=== PATIENT | female | born 1945 | race Caucasian/White ===

== ENCOUNTER 2024-02-18 08:49 | Inpatient (IN) | payer MEDICARE, OTHER ==
[2024-02-18] MEDS ORDERED: NOREPINEPHRINE 8 MG/250 ML-D5W 250 ML ONE ×2 (08:52→09:31)
[2024-02-18] MEDS ORDERED: KETAMINE 100 MG/ML (5ML VIAL) ONE (08:53)
[2024-02-18] MEDS ORDERED: Heparin 25,000 UNITS/D5W 500 ml bag ONE (09:03)
[2024-02-18] MEDS ORDERED: Heparin 10,000 UNITS/ 10 ML VIAL ONE (09:03)
[2024-02-18] MEDS ORDERED: Rocuronium Bromide 10 MG/ML (10ML VIAL) ONE ×2 (09:03→11:58)
[2024-02-18] MEDS ORDERED: fentaNYL 50 mcg/mL 1 mL Vial ONE (09:05)
[2024-02-18] MEDS ORDERED: Aspirin 300 MG Suppository ONE ×2 (09:06→09:25)
[2024-02-18 09:13] LABS: #Basophils 0.03 10x3/uL (0.0-0.2); #Eosinophils Less than 0.03 10x3/uL (0.0-0.7); %Basophils 0.2 % (0.0-1.0); %Lymphocytes 7.7 % (21.0-51.0); %Monocytes 5.5 % (0.0-10.0); %Neutrophils 85.3 % (42.0-75.0); Hematocrit 35.7 % (36.0-47.0); Hemoglobin 11.9 g/dL (12.0-16.0); Mean Corpuscular HGB CONC 33.3 g/dL (32.0-36.0); Mean Corpuscular Hemoglobin 32.3 pg (27.0-31.0); Mean Platelet Volume 10.1 fL (7.4-10.4); Platelet Count 340 10x3/uL (130-400); RBC Distribution Width 13.4 % (11.5-14.5); Red Blood Cell (RBC) Count 3.68 mill/uL (4.20-5.40)
[2024-02-18 09:34] LABS: INR-International Normal Ratio 1.3; PTT 29.8 sec (22.9-36.1); Prothrombin Time 16.3 sec (12.0-14.7)
[2024-02-18] MEDS ORDERED: Verapamil 5 MG/2 ML VIAL ONE (09:46)
[2024-02-18] MEDS ORDERED: Adenosine 6 mg (2 mL) VIAL ONE (09:46)
[2024-02-18] MEDS ORDERED: Atropine Sulfate 1 mg/10 ml Syringe ONE (09:52)
[2024-02-18] MEDS ORDERED: EPINEPHrine 1 MG/10 ML Abboject SYRINGE ONE (09:52)
[2024-02-18 09:59] LABS: Phosphorus 4.9 mg/dL (2.3-4.7)
[2024-02-18 10:13] LABS: ALT (SGPT) 89 U/L (8-55); AST (SGOT) 114 U/L (5-34); Albumin 2.8 g/dL (3.4-4.8); Alkaline Phosphatase 60 U/L (40-110); Anion Gap 21 mmol/L (10-20); BUN (Urea Nitrogen) 15 mg/dL (9.8-20.1); Bilirubin, Total 0.6 mg/dL (0.2-1.2); Calc. Creatinine Clearance 0 mL/min (70-130); Calcium 8.3 mg/dL (7.8-10.44); Carbon Dioxide 14 mmol/L (23-31); Chloride 97 mmol/L (98-107); Estimated GFR 60; Globulin 3.1 g/dL (2.4-3.5); Glucose 551 mg/dL (83-110); Magnesium 1.9 mg/dL (1.6-2.6); Potassium 5.1 mmol/L (3.5-5.1); Protein, Total 5.9 g/dL (5.8-8.1); Sodium 127 mmol/L (136-145)
[2024-02-18] MEDS ORDERED: Iopamidol 370 76% 100 ML VIAL ONE (11:11)
[2024-02-18] MEDS: Propofol 1,000 MG/100 ML VIAL IV ONE (12:45)
[2024-02-18 12:51] LABS: Actual Bicarbonate (HCO3a) 16.4 mEq/L (22-28); Base Excess (BEa) -9.2 mEq/L (-2.0 to +3.0); CO2 Tension 34.5 mmHg (35.0-45.0); Calcium, Ionized (arterial) 1.17 mmol/L (1.12-1.30); Carboxyhemoglobin (COHb) 0.5 gm% (0.0-3.0); Hematocrit-ABG 38 % (36.0-47.0); Hemoglobin (Hb) 12.8 g/dL (12.0-16.0); O2 Tension (PaO2), arterial 60.8 mmHg (> 70.0); Potassium - ABG Lab 5.34 mmol/L (3.70-5.30); pH, Arterial 7.294 (7.35-7.45)
[2024-02-18 12:52] LABS: ALV-art Gradient 609.075 mmHg (0-20); Puncture Site Right Radial artery
[2024-02-18] MEDS: Fentanyl CADD 100 ML ONE (12:55)
[2024-02-18] MEDS: Sodium Bicarbonate 25 MEQ in Dextrose 5% in Water 1,000 ML FS SCH (13:15)
[2024-02-18] MEDS: Sodium Chloride 0.9% 1,000 ML IV SCH (13:20)
[2024-02-18] MEDS ORDERED: Lorazepam 2 MG/ML VIAL SLOW IVP PRN (13:30)
[2024-02-18] MEDS ORDERED: Propofol 1,000 MG/100 ML VIAL IV PRN (13:30)
[2024-02-18] MEDS ORDERED: Morphine 2 MG/ML VIAL SLOW IVP PRN (13:30)
[2024-02-18] MEDS ORDERED: Fentanyl BOLUS 250 ML IVPB PRN (13:30)
[2024-02-18] MEDS ORDERED: Fentanyl CADD 100 ML IV SCH (13:30)
[2024-02-18] MEDS ORDERED: Propofol BOLUS 1,000 MG/100 ML VIAL IV PRN (13:30)
[2024-02-18] MEDS ORDERED: Glucagon 1 MG/ML KIT IM PRN (13:46)
[2024-02-18] MEDS ORDERED: Dextrose 50% Abboject 50 ML SYRINGE SLOW IVP PRN (13:46)
[2024-02-18] MEDS ORDERED: Dextrose 5% in Water 1,000 ML IV PRN (13:46)
[2024-02-18 14:10] LABS: Actual Bicarbonate (HCO3a) 18.6 mEq/L (22-28); Base Excess (BEa) -5.4 mEq/L (-2.0 to +3.0); CO2 Tension 31.4 mmHg (35.0-45.0); Calcium, Ionized (arterial) 1.07 mmol/L (1.12-1.30); Carboxyhemoglobin (COHb) 0.4 gm% (0.0-3.0); Hematocrit-ABG 34 % (36.0-47.0); Hemoglobin (Hb) 11.6 g/dL (12.0-16.0); Potassium - ABG Lab 4.83 mmol/L (3.70-5.30); pH, Arterial 7.391 (7.35-7.45)
[2024-02-18 14:12] LABS: O2 Tension (PaO2), arterial 35.3 mmHg (> 70.0)
[2024-02-18] MEDS: NOREPINEPHRINE 8 MG/250 ML-D5W 250 ML IVPB SCH (14:30)
[2024-02-18] MEDS: Insulin Lispro 100 UNIT/ML 10 ML VIAL SC PRN (14:37)
[2024-02-18 14:58] VITALS: BMI 28.4
[2024-02-18] MEDS ORDERED: Sodium Chloride 0.9% 500 ML IV SCH (15:00)
[2024-02-18] MEDS ORDERED: Heparin 25,000 units/D5W 500 ML IV SCH (15:00)
[2024-02-18] MEDS ORDERED: Heparin 10,000 UNITS/1 ML VIAL 50,000 UNITS in Dextrose 5% in Water 1,000 ML IVPB SCH (15:00)
[2024-02-18 15:33] LABS: PTT 120.2 sec (22.9-36.1)
[2024-02-18] MEDS: NOREPINEPHRINE 8 MG/250 ML-D5W 250 ML ONE (16:30)
[2024-02-18] MEDS: Heparin 10,000 UNITS/ 10 ML VIAL SLOW IVP SCH (16:36)
[2024-02-18 16:39] LABS: ALT (SGPT) 139 U/L (8-55); AST (SGOT) 283 U/L (5-34); Albumin 2.6 g/dL (3.4-4.8); Alkaline Phosphatase 55 U/L (40-110); Anion Gap 17 mmol/L (10-20); BUN (Urea Nitrogen) 17 mg/dL (9.8-20.1); Bilirubin, Total 0.5 mg/dL (0.2-1.2); Calc. Creatinine Clearance 64 mL/min (70-130); Calcium 7.9 mg/dL (7.8-10.44); Carbon Dioxide 16 mmol/L (23-31); Chloride 99 mmol/L (98-107); Estimated GFR 65; Globulin 2.7 g/dL (2.4-3.5); Glucose 460 mg/dL (83-110); Protein, Total 5.3 g/dL (5.8-8.1); Sodium 127 mmol/L (136-145)
[2024-02-18] MEDS: TICAGRELOR 90 MG TABLET PO SCH ×2 (16:49→16:53)
[2024-02-18 19:46] LABS: Troponin I 13.893 ng/mL (< 0.028)
[2024-02-18 21:31] LABS: Glucose 332 mg/dL (83-110)
[2024-02-18 23:19] LABS: #Basophils 0.03 10x3/uL (0.0-0.2); #Eosinophils Less than 0.03 10x3/uL (0.0-0.7); %Basophils 0.2 % (0.0-1.0); %Eosinophils 0.1 % (0.0-10.0); %Monocytes 9.2 % (0.0-10.0); %Neutrophils 70.4 % (42.0-75.0); Hematocrit 29.4 % (36.0-47.0); Mean Corpuscular Hemoglobin 31.6 pg (27.0-31.0); Mean Platelet Volume 10.2 fL (7.4-10.4); Platelet Count 324 10x3/uL (130-400); RBC Distribution Width 13.5 % (11.5-14.5); Red Blood Cell (RBC) Count 3.16 mill/uL (4.20-5.40)
[2024-02-19 01:32] LABS: Glucose 218 mg/dL (83-110)
[2024-02-19 03:05] LABS: Actual Bicarbonate (HCO3v) 19.3 mEq/L (22-28); Analyzer IN Cardio ER; Chloride (VBG) 101 mmol/L (98-106); Hematocrit-VBG 28 % (36.0-47.0); Hemoglobin (Hb) 9.4 g/dL (11.7-16.1); Potassium (VBG) 3.69 mmol/L (3.70-5.30); Sodium 128 mmol/L (133-146)
[2024-02-19 03:13] LABS: #Basophils 0.04 10x3/uL (0.0-0.2); %Basophils 0.2 % (0.0-1.0); %Eosinophils 0.2 % (0.0-10.0); %Monocytes 10.1 % (0.0-10.0); %Neutrophils 66.2 % (42.0-75.0); Hematocrit 25.4 % (36.0-47.0); Hemoglobin 8.5 g/dL (12.0-16.0); Mean Corpuscular HGB CONC 33.5 g/dL (32.0-36.0); Mean Corpuscular Hemoglobin 32.1 pg (27.0-31.0); Mean Corpuscular Volume 95.8 fL (78.0-98.0); Mean Platelet Volume 10.1 fL (7.4-10.4); Platelet Count 288 10x3/uL (130-400); RBC Distribution Width 13.6 % (11.5-14.5); Red Blood Cell (RBC) Count 2.65 mill/uL (4.20-5.40)
[2024-02-19 03:44] LABS: INR-International Normal Ratio 1.4; PTT 74.4 sec (22.9-36.1)
[2024-02-19 03:56] LABS: Lactic Acid 2.43 mmol/L (0.5-2.2)
[2024-02-19 04:01] LABS: ALT (SGPT) 121 U/L (8-55); AST (SGOT) 250 U/L (5-34); Albumin 2.2 g/dL (3.4-4.8); Alkaline Phosphatase 42 U/L (40-110); Anion Gap 13 mmol/L (10-20); BUN (Urea Nitrogen) 17 mg/dL (9.8-20.1); Bilirubin, Total 0.4 mg/dL (0.2-1.2); Calc. Creatinine Clearance 76 mL/min (70-130); Calcium 7.4 mg/dL (7.8-10.44); Carbon Dioxide 18 mmol/L (23-31); Chloride 102 mmol/L (98-107); Estimated GFR 79; Globulin 2.1 g/dL (2.4-3.5); Glucose 213 mg/dL (83-110); Potassium 3.7 mmol/L (3.5-5.1); Protein, Total 4.3 g/dL (5.8-8.1); Sodium 129 mmol/L (136-145)
[2024-02-19] MEDS: Albumin 25% 25 GM (100 mL) BOT IVPB SCH (04:44)
[2024-02-19 06:17] LABS: Glucose 249 mg/dL (83-110)
[2024-02-19] MEDS ORDERED: Morphine 10 MG/ML VIAL SLOW IVP PRN (09:28)
[2024-02-19] MEDS: Morphine 4 MG/ML VIAL SLOW IVP PRN (10:39)
[2024-02-19 23:09] VITALS: TEMP 98.1
[2024-02-20 07:29] VITALS: BP 90/62
[2024-02-20] MEDS: Scopolamine 1 mg/72 hour Patch TD SCH (08:50)
== END 2024-02-20 17:33 | disposition hospice, inpatient (51) | DRG 215 ==
LOC: ERS 08:49 → CCL 09:34 → CCU 09:36 → T4-B 02-19 22:41
PROVIDERS: ADMIT Internal Medicine Cardiovascular Disease; ATTEND Internal Medicine Cardiovascular Disease
PROC: 027034Z Dilation of Coronary Artery, One Artery with Drug-eluting Intraluminal Device, Percutaneous Approach (ICD-10-PCS; principal; 2024-02-18)
PROC: 02HA3RZ Insertion of Short-term External Heart Assist System into Heart, Percutaneous Approach (ICD-10-PCS; 2024-02-18)
PROC: 02F03ZZ Fragmentation in Coronary Artery, One Artery, Percutaneous Approach (ICD-10-PCS; 2024-02-18)
PROC: 5A0221D Assistance with Cardiac Output using Impeller Pump, Continuous (ICD-10-PCS; 2024-02-18)
PROC: 4A023N7 Measurement of Cardiac Sampling and Pressure, Left Heart, Percutaneous Approach (ICD-10-PCS; 2024-02-18)
PROC: B2111ZZ Fluoroscopy of Multiple Coronary Arteries using Low Osmolar Contrast (ICD-10-PCS; 2024-02-18)
PROC: 5A2204Z Restoration of Cardiac Rhythm, Single (ICD-10-PCS; 2024-02-18)
PROC: 0BH17EZ Insertion of Endotracheal Airway into Trachea, Via Natural or Artificial Opening (ICD-10-PCS; 2024-02-18)
PROC: 5A1945Z Respiratory Ventilation, 24-96 Consecutive Hours (ICD-10-PCS; 2024-02-18)
PROC: 4A133R1 Monitoring of Arterial Saturation, Peripheral, Percutaneous Approach (ICD-10-PCS; 2024-02-18)
PROC: 3E033XZ Introduction of Vasopressor into Peripheral Vein, Percutaneous Approach (ICD-10-PCS; 2024-02-18)
PROC: 02PA3RZ Removal of Short-term External Heart Assist System from Heart, Percutaneous Approach (ICD-10-PCS; 2024-02-19)
PROC: 30233N1 Transfusion of Nonautologous Red Blood Cells into Peripheral Vein, Percutaneous Approach (ICD-10-PCS; 2024-02-19)
DX: I21.09 ST elevation (STEMI) myocardial infarction involving other coronary artery of anterior wall (principal); R57.0 Cardiogenic shock; K72.00 Acute and subacute hepatic failure without coma; E87.1 Hypo-osmolality and hyponatremia; E87.20 Acidosis, unspecified; I48.91 Unspecified atrial fibrillation; Z51.5 Encounter for palliative care; F03.90 Unspecified dementia, unspecified severity, without behavioral disturbance, psychotic disturbance, mood disturbance, and anxiety; Z66 Do not resuscitate; I10 Essential (primary) hypertension; E78.00 Pure hypercholesterolemia, unspecified; I25.5 Ischemic cardiomyopathy; E11.649 Type 2 diabetes mellitus with hypoglycemia without coma; Z79.82 Long term (current) use of aspirin; Z79.899 Other long term (current) drug therapy
CPT/HCPCS: 31500; 33990; 36415; 36416; 36430; 36556; 36600; 70450; 71045; 80053; 82805; 83605; 83735; 84100; 84484; 85025; 85347; 85610; 85730; 86850; 86900; 86901; 87040; 92941; 92950; 92972; 93005; 93010; 93306; 93456; 93460; 94002; 94003; 94760; 96374; 96375; C1725; C1751; C1761; C1769; C1874; C1887; C1894; C9606; G0278; J0153; J0171; J0461; J1644; J1815; J2272; J2704; J3010; J7030; J7070; P9016; P9047; Q9967

== ENCOUNTER 2024-02-20 17:50 | Inpatient (IN) | payer OTHER ==
[2024-02-20] MEDS ORDERED: Morphine 4 MG/ML VIAL SLOW IVP PRN (18:40)
[2024-02-20] MEDS ORDERED: Lorazepam 2 MG/ML VIAL SLOW IVP PRN (18:41)
[2024-02-20] MEDS ORDERED: Bisacodyl 10 MG SUPP PR PRN (18:42)
[2024-02-20] MEDS ORDERED: Scopolamine 1 mg/72 hour Patch TOP PRN (18:45)
[2024-02-20] MEDS ORDERED: Ondansetron PF 4 MG/2 ML Vial IVP PRN (18:45)
[2024-02-20] MEDS: Morphine 4 MG/ML VIAL SLOW IVP SCH (18:58)
[2024-02-20] MEDS: Lorazepam 2 MG/ML VIAL SLOW IVP SCH (18:58)
[2024-02-21] MEDS: Morphine 4 MG/ML VIAL SLOW IVP PRN (00:58)
[2024-02-21] MEDS: Lorazepam 2 MG/ML VIAL SLOW IVP PRN (06:35)
[2024-02-21 08:02] VITALS: BP 94/58
[2024-02-21] MEDS: Scopolamine 1 mg/72 hour Patch TOP SCH (08:26)
[2024-02-21] MEDS: Acetaminophen 650 MG Suppository PR PRN (08:27)
[2024-02-21 08:41] VITALS: TEMP 101
== END 2024-02-21 15:47 | disposition expired | DRG 951 ==
LOC: T4-B 17:50
PROVIDERS: ADMIT Internal Medicine Cardiovascular Disease; ATTEND Internal Medicine Cardiovascular Disease
PROC: 5A2204Z Restoration of Cardiac Rhythm, Single (ICD-10-PCS; principal; 2024-02-20)
DX: Z51.5 Encounter for palliative care (principal); I21.3 ST elevation (STEMI) myocardial infarction of unspecified site; I48.91 Unspecified atrial fibrillation; Z66 Do not resuscitate; I95.9 Hypotension, unspecified; F03.90 Unspecified dementia, unspecified severity, without behavioral disturbance, psychotic disturbance, mood disturbance, and anxiety; E78.5 Hyperlipidemia, unspecified; I10 Essential (primary) hypertension; E11.9 Type 2 diabetes mellitus without complications; G47.33 Obstructive sleep apnea (adult) (pediatric)
CPT/HCPCS: J2060; J2272